=== PATIENT | female | born 1980 | race Caucasian/White ===

== ENCOUNTER 2018-02-14 20:23 | Emergency (ER) | payer MEDICAID ==
[~2018-02-14] VITALS: Ht 170.2 cm; Wt 65.7 kg
[~2018-02-14 20:23] MED LIST: CITA-278 PO; DICL75TA PO; HYDR-569 PO
[2018-02-14 20:58] VITALS: BP 108/63
[2018-02-14] MEDS ORDERED: ONDA8TAB9 PO (22:24)
[2018-02-14] MEDS ORDERED: LOPE2CAP PO (22:24)
[2018-02-14] MEDS ORDERED: ondansetron 4mg rapidly disintigrating tab PO ONE (22:25)
[2018-02-14] MEDS ORDERED: loperamide 2mg capsule PO ONE (22:25)
== END 2018-02-14 22:43 | disposition home or self-care (01) ==
LOC: ER 20:23
DX: F11.23 Opioid dependence with withdrawal (principal); Z88.0 Allergy status to penicillin; Z79.899 Other long term (current) drug therapy
CPT/HCPCS: 99283

== ENCOUNTER 2018-05-07 07:57 | Emergency (ER) | payer MEDICAID ==
[~2018-05-07] VITALS: Ht 170.2 cm; Wt 80.5 kg
[~2018-05-07 07:57] MED LIST changes: +BACDS PO; +CEPH500C5 PO; +LOPE2CAP PO; +ONDA8TAB9 PO
[2018-05-07 08:14] VITALS: BP 135/85
== END 2018-05-07 09:01 | disposition home or self-care (01) ==
LOC: ER 07:58
DX: M54.10 Radiculopathy, site unspecified (principal); F11.90 Opioid use, unspecified, uncomplicated; Z88.0 Allergy status to penicillin; Z79.899 Other long term (current) drug therapy
CPT/HCPCS: 99283

== ENCOUNTER 2018-08-17 20:22 | Emergency (ER) | payer MEDICAID ==
[~2018-08-17] VITALS: Ht 170.2 cm; Wt 91.2 kg
[~2018-08-17 20:22] MED LIST changes: -BACDS PO; +HYDR-4383 PO; -HYDR-569 PO
[2018-08-17 20:43] VITALS: BP 131/90
== END 2018-08-18 01:38 | disposition left against medical advice (07) ==
LOC: ER 20:22
DX: M79.672 Pain in left foot (principal); Z53.21 Procedure and treatment not carried out due to patient leaving prior to being seen by health care provider

== ENCOUNTER 2020-01-25 10:04 | Emergency (ER) | payer MEDICAID ==
[~2020-01-25] VITALS: Ht 170.2 cm; Wt 107.0 kg
[~2020-01-25 10:04] MED LIST changes: -CEPH500C5 PO; -CITA-278 PO; +CITA20TA28 PO; +DICL-345 PO; -DICL75TA PO
[2020-01-25] MEDS ORDERED: normal saline 1000ML IV soln IVB ONE (10:10)
[2020-01-25 10:53] LABS: URINE HCG NEGATIVE (NEG)
[2020-01-25 10:55] LABS: CLARITY,URINE CLEAR (Clear); COLOR,URINE YELLOW (Yellow); GLUCOSE, URINE NEGATIVE (Neg); KETONES,URINE NEGATIVE (Neg); LEUKOCYTE ESTERASE ,URINE NEGATIVE (Neg); NITRITES, URINE NEGATIVE (Neg); OCCULT BLOOD,URINE NEGATIVE (Neg); PROTEIN,URINE NEGATIVE (Neg); UROBILINOGEN,URINE 0.2 E.U/dL (0.2-1.0)
[2020-01-25 10:58] LABS: UA COLLECTION TYPE CLN CATCH MIDSTREAM
[2020-01-25 11:29] LABS: BASOPHILS % (AUTO) 0.5 % (0-1); EOSINOPHILS # (AUTO) 0.4 X10'3 (0-0.9); EOSINOPHILS % (AUTO) 4.5 % (0-6); HEMATOCRIT 40.6 % (35.0-45.0); HEMOGLOBIN 13.1 g/dl (12.0-16.0); LYMPHOCYTES % (AUTO) 37.2 % (21-51); MEAN CORPUSCULAR HEMOGLOBIN 27.3 PG (27.0-31.0); MEAN CORPUSCULAR HGB CONC 32.2 g/dL (33.0-36.5); MEAN CORPUSCULAR VOLUME 84.7 FL (78-98); MEAN PLATELET VOLUME 8.1 FL (7.4-10.4); MONOCYTES # (AUTO) 0.6 X10'3 (0-0.9); MONOCYTES % (AUTO) 6.8 % (2-12); NEUTROPHILS # (AUTO) 4.2 X10'3 (1.8-7.7); PLATELET COUNT 304 X10'3 (140-440); RED BLOOD COUNT 4.79 X10'6 (4.20-5.60); RED CELL DISTRIBUTION WIDTH 14.1 % (11.5-14.5); WHITE BLOOD COUNT 8.2 X10'3 (4.5-11.0)
[2020-01-25 11:43] LABS: ALANINE AMINOTRANSFERASE 64 U/L (12-78); ALBUMIN 3.5 G/DL (3.4-5.0); ALBUMIN/GLOBULIN RATIO 0.9 (1.1-1.5); ALKALINE PHOSPHATASE 175 IU/L (46-116); ANION GAP 3 (8-16); ASPARTATE AMINO TRANSFERASE 43 U/L (10-37); BILIRUBIN,TOTAL 0.2 MG/DL (0.1-1.0); BLOOD UREA NITROGEN 9 MG/DL (7-18); BUN/CREATININE RATIO 10.6 (6.6-38.0); CALCIUM 8.8 MG/DL (8.5-10.1); CHLORIDE 106 MMOL/L (99-107); CREATININE 0.85 MG/DL (0.40-0.90); GLUCOSE 100 MG/DL (70-104); LIPASE 61 U/L (73-393); POTASSIUM 4.1 MMOL/L (3.5-5.1); SODIUM 139 MMOL/L (135-145); TOTAL CARBON DIOXIDE 30.3 MMOL/L (24-32); TOTAL PROTEIN 7.3 G/DL (6.4-8.2); eGFR 74 ML/MIN
[2020-01-25] MEDS ORDERED: POLY17PO10 PO (13:56)
[2020-01-25 14:22] VITALS: BP 146/86
== END 2020-01-25 14:24 | disposition home or self-care (01) ==
LOC: ER 10:04
DX: R10.31 Right lower quadrant pain (principal); R11.0 Nausea; F41.9 Anxiety disorder, unspecified; F32.9 Major depressive disorder, single episode, unspecified; F11.90 Opioid use, unspecified, uncomplicated; Z60.2 Problems related to living alone; Z88.0 Allergy status to penicillin; Z79.899 Other long term (current) drug therapy
CPT/HCPCS: 36415; 76700; 76881; 80053; 81003; 81025; 83690; 85025; 99285; J7030

== ENCOUNTER 2020-10-22 05:21 | Day surgery (SDC) | payer OTHER, MEDICAID ==
[2020-10-09 13:26] LABS: BASOPHILS # (AUTO) 0.1 X10'3 (0-0.2); BASOPHILS % (AUTO) 0.6 % (0-1); EOSINOPHILS # (AUTO) 0.3 X10'3 (0-0.9); EOSINOPHILS % (AUTO) 3.2 % (0-6); LYMPHOCYTES # (AUTO) 4.4 X10'3 (1.1-4.8); LYMPHOCYTES % (AUTO) 40.7 % (21-51); MEAN CORPUSCULAR HEMOGLOBIN 27.3 PG (27.0-31.0); MEAN CORPUSCULAR HGB CONC 32.3 g/dL (33.0-36.5); MEAN CORPUSCULAR VOLUME 84.6 FL (78-98); MONOCYTES # (AUTO) 0.7 X10'3 (0-0.9); MONOCYTES % (AUTO) 6.3 % (2-12); NEUTROPHILS # (AUTO) 5.3 X10'3 (1.8-7.7); NEUTROPHILS % (AUTO) 49.2 % (42-75); PRE OP HEMATOCRIT 41.9 % (35.0-45.0); PRE OP HEMOGLOBIN 13.5 g/dL (12.0-16.0); PRE OP PLATELET COUNT 320 X10'3 (140-440); RED BLOOD COUNT 4.95 X10'6 (4.20-5.60); RED CELL DISTRIBUTION WIDTH 14.1 % (11.5-14.5)
[2020-10-09 13:42] LABS: ALBUMIN 3.7 G/DL (3.4-5.0); ALBUMIN/GLOBULIN RATIO 0.9 (1.1-1.5); ALKALINE PHOSPHATASE 144 IU/L (46-116); BLOOD UREA NITROGEN 14 MG/DL (7-18); BUN/CREATININE RATIO 17.1 (6.6-38.0); CHLORIDE 107 MMOL/L (99-107); CREATININE 0.82 MG/DL (0.40-0.90); PRE OP ALT 28 U/L (30-65); PRE OP ANION GAP 7 (8-16); PRE OP AST 26 U/L (10-37); PRE OP BILIRUB, TOTAL 0.3 MG/DL (0.0-1.0); PRE OP GLUCOSE 91 MG/DL (70-104); PRE OP SODIUM 140 MMOL/L (135-145); TOTAL PROTEIN 7.9 G/DL (6.4-8.2); eGFR 77 ML/MIN
[2020-10-09 13:44] LABS: PRE OP POTASSIUM 4.3 MMOL/L (3.4-5.1)
[2020-10-09 13:45] LABS: HCG SERUM QL NEGATIVE
[~2020-10-22] VITALS: Ht 170.2 cm; Wt 115.0 kg
[2020-10-22] VITALS (8 sets, daily range): BP systolic 128–163; BP diastolic 52–110
[~2020-10-22 05:21] MED LIST changes: -CITA20TA28 PO; -DICL-345 PO; -HYDR-4383 PO; -LOPE2CAP PO; +METH10OR11 PO; -ONDA8TAB9 PO; +ceFAZolin 2gm in dextrose, iso 50 ML IV ONE; +famotidine 20mg tablet PO ONE; +ringers solution, lacted 1,000 ML IV SCH; +vancomycin 1,500 MG in NS 300ml IV soln IV ONE
[2020-10-22] MEDS ORDERED: vancomycin 1,500 MG in NS 300ml IV soln IV ONE (05:30)
[2020-10-22] MEDS ORDERED: ceFAZolin 2gm in dextrose, iso 50 ML IV ONE (05:30)
[2020-10-22] MEDS ORDERED: famotidine 20mg tablet PO ONE (05:30)
[2020-10-22] MEDS ORDERED: LIDOcaine 1% (10mg/ml) 2ml vial ONE (05:50)
[2020-10-22] MEDS ORDERED: BUPIVAcaine/PF 2.5 mg/ml (0.25%) 30ml vial ONE (06:50)
[2020-10-22] MEDS ORDERED: methylPREDNISolone sod succ 125mg/2ml vial ONE (06:50)
[2020-10-22] MEDS ORDERED: fentaNYL/PF 50MCG/1 ML 2ML syringe ONE (07:24)
[2020-10-22] MEDS ORDERED: MIDAZolam 5mg/5ml vial ONE (07:25)
[2020-10-22] MEDS ORDERED: meperidine/PF 25mg/ml syringe IV PRN ×3 (07:35)
[2020-10-22] MEDS ORDERED: morphine 4 MG/ML inj SYRINge IV PRN (07:35)
[2020-10-22] MEDS ORDERED: morphine 2 MG/ML inj. syringe IV PRN (07:35)
[2020-10-22] MEDS ORDERED: proCHLORperazine 10 MG/2 ml inj IV PRN (07:35)
[2020-10-22] MEDS ORDERED: ondansetron/PF 4mg/2ml inj IV PRN (07:35)
[2020-10-22] MEDS ORDERED: ringers solution, lacted 1,000 ML IV SCH (07:35)
[2020-10-22] MEDS ORDERED: propofol inj 20 ML IV ONE ×2 (08:12)
--- NOTE | 2020-10-22 08:30 | NUR ---
Received from OR via [facility], accompanied by Anesthesiologist DR DAVIS and report given by Anesthesiolgist. PATIENT SLEEPY-OPENS EYES TO VERBAL STIMULI, DENIES PAIN, V/S WNL, NEUROVASCULAR CHECKS INTACT-PINK, WARM, ABLE TO MOVE FINGERS, 20G PIV R HAND, DRESSING TO LEFT WRIST CDI, ELEVATED WITH ICEBAG APPLIED.
--- NOTE | 2020-10-22 09:40 | NUR ---
PATIENT A&OX4, DENIES PAIN, V/S WNL, NEUROVASCULAR CHECKS INTACT-PINK, WARM, ABLE TO MOVE FINGERS, 20G PIV R HAND D/C-NO BLEEDING, CANULA INTACT, DRESSING TO LEFT WRIST-CDI, IN SLING, I HAVE REVIEWED D/C INSTRUCTIONS WITH PATIENT AND FAMILY AND THEY HAVE VERBALIZED UNDERSTANDING. PATIENT D/C HOME WITH ALL BELONGINGS AND FAMILY GAVE TRANSPORT HOME.
== END 2020-10-22 09:40 | disposition home or self-care (01) ==
LOC: PAS 05:21
PROVIDERS: ATTEND Orthopaedic Surgery
DX: G56.02 Carpal tunnel syndrome, left upper limb (principal); G56.22 Lesion of ulnar nerve, left upper limb; Z20.822 Contact with and (suspected) exposure to COVID-19; G89.4 Chronic pain syndrome; F11.20 Opioid dependence, uncomplicated; E66.01 Morbid (severe) obesity due to excess calories; Z68.39 Body mass index [BMI] 39.0-39.9, adult; Z98.890 Other specified postprocedural states; Z79.899 Other long term (current) drug therapy
CPT/HCPCS: 36415; 64719; 64721; 76937; 80053; 82948; 84703; 85025; 87635; A6222; J2001; J2250; J2704; J2930; J3010; J3370; J3490; J7040; A4215; A4565; A4618; A6449; A7000; J7120